=== PATIENT | male | born 1955 | race Caucasian/White ===

== ENCOUNTER → 2021-09-30 | Outpatient (CLI) | payer BC ==
[~2021-09-30] MED LIST: CALCIUM; CYCL10 PO; Calcium Carbon500 MG PO; Flexeril 10 mg10 MG PO; HYDACE5325 PO; Kristalose20 GM PO; Lasix20 MG PO; Motrin800 MG PO; NAPR500 PO; Percocet 5-3251 EACH PO; VITAMIN D310 MC4 PO
[2021-09-30 13:27] LABS: Osmolality, Urine 527 mos/kg (15-1400)
[2021-09-30 13:35] LABS: Sodium, Urine, Random <5 mmol/L (20-110)
== END | disposition home or self-care (01) ==
LOC: LAB SHORT 11:33
PROVIDERS: Family Medicine
DX: E87.1 Hypo-osmolality and hyponatremia (principal)
CPT/HCPCS: 83935; 84300